=== PATIENT | male | born 1990 | race African-American/Black ===

== ENCOUNTER 2023-07-17 03:10 | Day surgery (SDC) | payer OTHER, SELFPAY ==
[2023-06-23 13:46] VITALS: BMI 29.7
--- NOTE | 2023-07-14 12:37 | SUR.PREOP ---
Patient called regarding upcoming procedure. Reviewed preop instructions, appointment times, and procedure prep.
--- NOTE | 2023-07-14 17:20 | PM.HPGS ---
History of Present Illness History of Present Illness Consent: Risks, benefits, and alternatives have been discussed and questions answered. Patient agrees to proceed with procedure. Chief complaint: Early satiety, abdominal distension gaseous Narrative: Quique Estrella is a 33 year old male Who has been suffering from fullness, early satiety and bloating after meals. He lost about 30 lb but regained most of it. Review of Systems Review of Systems: All systems reviewed & are unremarkable except as noted in HPI and below PMFSH Past Medical History Medical History Early satiety Social History Social History Smoking status: Current every day smoker Tobacco type: e-cigarettes/vaping Alcohol intake: current Drinks per week: 4 Substance use type: does not use Living arrangements: with family Spiritual care concerns: No Meds Home Medications and Allergies Home Medications Medication Instructions Recorded Confirmed Type ergocalciferol (vitamin D2) 1,250 1,250 mcg PO WEEKLY 06/19/23 06/23/23 History mcg (50,000 unit) capsule famotidine 40 mg tablet 40 mg PO DAILY 06/19/23 06/23/23 History omeprazole 40 mg capsule,delayed 40 mg PO DAILY 06/19/23 06/23/23 History release Allergies Allergy/AdvReac Type Severity Reaction Status Date / Time coconut Allergy Swelling Verified 07/17/23 11:10 of Lip/Tongue/Throat watermelon Allergy Swelling Verified 07/17/23 11:10 of Lip/Tongue/Throat Exam Const: General: alert Orientation/consciousness: patient oriented x3 Resp: Auscultation: clear to auscultation bilaterally Cardio: Rhythm: regular rhythm GI: GI Palp: Yes Soft to palpation and No Tenderness to palpation present (GI) Neuro: General: patient oriented x3 Assessment and Plan Assessment and plan (1) Early satiety: Code(s): R68.81 - Early satiety Status: Acute Assessment and Plan: EGD with possible biopsy or dilatation or cautery.
[2023-07-17 11:11] VITALS: BP 124/87; PULSE 76; RESP 20; TEMP 36.4; O2SAT 100; BMI 29.3
[2023-07-17] MEDS: LACTATED RINGERS 1,000 ML 150 ML IV CONT (11:23)
--- NOTE | 2023-07-17 11:34 | WPDANESEPPF ---
Anes - Initial Pre Proc Eval Procedure: Operation Date: 07/17/23 12:30 Proposed Procedures p Esophagogastroduodenoscopy - Jose Cruz MD Date/Time: 07/17/23 11:34 Surgeon: Jose Cruz MD Pre Op Diagnosis: Early satiety, abdominal distension gaseous Patient Data Age: 33 Gender: M Height: 1.85 m Weight: 100.8 kg Last Vital Signs Temp 36.4 C 07/17/23 11:11 Pulse 76 07/17/23 11:11 Resp 20 07/17/23 11:11 BP 124/87 07/17/23 11:11 Pulse Ox 100 07/17/23 11:11 O2 Del Method Room Air 07/17/23 11:11 Allergies Allergy/AdvReac Type Severity Reaction Status Date / Time coconut Allergy Swelling Verified 07/17/23 11:10 of Lip/Tongue/Throat watermelon Allergy Swelling Verified 07/17/23 11:10 of Lip/Tongue/Throat Home Medications Medication Instructions Recorded Confirmed Type ergocalciferol (vitamin D2) 1,250 1,250 mcg PO WEEKLY 06/19/23 06/23/23 History mcg (50,000 unit) capsule famotidine 40 mg tablet 40 mg PO DAILY 06/19/23 06/23/23 History omeprazole 40 mg capsule,delayed 40 mg PO DAILY 06/19/23 06/23/23 History release Patient hx anesthesia problems: none Family hx anesthesia problems: none Results Review: All pre-operative results and documents have been reviewed as part of the pre-operative evaluation. [facility] Past Medical History Medical History Early satiety Social History Social History Smoking status: Current every day smoker Tobacco type: e-cigarettes/vaping Alcohol intake: current Drinks per week: 4 Substance use type: does not use Living arrangements: with family Spiritual care concerns: No Anes - Eval Final PreProcedure Day of Procedure 07/17/23 11:34 Patient weight: overweight Heart: regular rate and rhythm Lungs: clear to auscultation Airway: Mallampati scale class II Neurological: alert and oriented Last oral intake: >/= 8 hours ASA classification: II Emergent: no Anesthetic plan: proceed Anesthesia type and monitoring: general GIVS and standard monitoring Results Review: All pre-operative results and documents have been reviewed as part of the pre-operative evaluation. Informed Consent: The patient's anesthetic plan and its attendant risks and benefits were discussed with the patient/family/POA. Questions were solicited and answers provided to the satisfaction of the patient/family/POA.
[2023-07-17 11:56] VITALS: BP 111/73; PULSE 84; RESP 22; O2SAT 98
[2023-07-17 12:06] VITALS: BP 117/82; PULSE 78; RESP 15; O2SAT 98
[2023-07-17 12:16] VITALS: BP 121/86; PULSE 70; RESP 21; O2SAT 100
== END 2023-07-17 12:23 | disposition home or self-care (01) ==
PROVIDERS: PCP Nurse Practitioner Family; Visit Provider Internal Medicine Gastroenterology
PROC: 0DJ08ZZ Inspection of Upper Intestinal Tract, Via Natural or Artificial Opening Endoscopic (ICD-10-PCS; CPT 43235; principal; 2023-07-17 12:30)
DX: K31.89 Other diseases of stomach and duodenum (principal); R68.81 Early satiety; R14.0 Abdominal distension (gaseous); F17.290 Nicotine dependence, other tobacco product, uncomplicated
CPT/HCPCS: 43239; 88305; J3010; J7120